=== PATIENT | male | born 1970 | race Caucasian/White ===

== ENCOUNTER 2021-04-03 02:05 | Outpatient (CLI) | payer OTHER, SELFPAY ==
--- NOTE | 2021-04-03 13:00 | DI.RAD_ITS ---
Exam(s) XR LUMBAR SPINE AP, LAT EXAM: XR LUMBAR SPINE AP, LAT CLINICAL HISTORY: BACK PAIN, DISABILITY DETERMINATION. TECHNIQUE: 2D digital imaging was performed of the lumbar spine. Four views were obtained. AP, lat eral and L5-S1 spot views were obtained. COMPARISON: No exams were available for comparison FINDINGS: BONES: No fracture or destructive lesion. Vertebral bodies are unremarkable. No facet hypertrophy nancy ntified. DISKS: Intervertebral disc spaces are maintained. There are mild degenerative changes seen at the T11 -T12 disc level. ALIGNMENT: Lumbar spinal alignment is within normal limits. SOFT TISSUE: Normal. IMPRESSION: 1. Unremarkable radiographs of the lumbar spine. 2. Mild degenerative changes at the T11-T12 disc level. DATA REPOSITORY: RADIATION DOSE DELIVERED:
== END 2021-04-03 02:25 ==
PROVIDERS: Visit Provider Pediatrics Pediatric Rheumatology
DX: Z02.71 Encounter for disability determination (principal); M51.34 Other intervertebral disc degeneration, thoracic region
CPT/HCPCS: 72100